=== PATIENT | female | born 1990 | race Two or more races ===

== ENCOUNTER 2022-04-14 18:54 | Emergency (ER) | payer OTHER ==
[~2022-04-14] VITALS: Ht 160 cm; Wt 56.7 kg
[2022-04-14] MEDS ORDERED: CLEOCIN HCL300 MG PO (20:53)
[2022-04-14] MEDS ORDERED: KETO10TA2 PO (20:53)
== END 2022-04-14 20:57 | disposition home or self-care (01) ==
LOC: ER 18:54
DX: N75.1 Abscess of Bartholin's gland (principal)

== ENCOUNTER 2022-05-30 20:05 | Emergency (ER) | payer OTHER ==
[~2022-05-30] VITALS: Ht 165.1 cm; Wt 56.7 kg
[~2022-05-30 20:05] MED LIST: CLEOCIN HCL300 MG PO; KETO10TA2 PO
== END 2022-05-31 05:56 | disposition home or self-care (01) ==
LOC: ER 20:05
DX: N75.1 Abscess of Bartholin's gland (principal); Z20.822 Contact with and (suspected) exposure to COVID-19